=== PATIENT | female | born 1960 | race Caucasian/White ===

== ENCOUNTER 2019-06-08 10:35 | Outpatient (CLI) | payer BC, SELFPAY ==
--- NOTE | ~2019-06-08 | CT_ITS ---
EXAMINATION: CT abdomen pelvis wo con EXAM DATE: 06/08/2019 12:31 INDICATION: Renal stone. Pancreatitis. TECHNIQUE: Spiral CT of the abdomen and pelvis was performed without contrast. Axial, coronal and sag ittal images were reviewed. The dose-length product (DLP) for this examination was 223.25 mGy-cm. T he exposure was tailored according to patient size (auto mA exposure control), and iterative reconstr uction (ASIR) was used as additional dose reduction technique. Comparison is made to prior examinatio n from 05/17/2017. FINDINGS: There is no nephrolithiasis or hydronephrosis. The uterus is unremarkable. The bladder is collapsed at time of imaging limiting evaluation. The liver, spleen, adrenal glands and pancreas are unremarkable. Gallbladder is unremarkable. No biliary obstruction. There is no retroperitoneal or pelvic lymphadenopathy. The appendix is normal. The stomach and small bowel are unremarkable. There is mild sigmoid colonic diverticulosis. There is no adjacent inflammatory change to suggest diverticulitis. There is coloni c fluid, correlate for diarrhea. No free intraperitoneal gas. The heart is normal in size. There are no pericardial or pleural effusions. The lung bases are unremarkable. There is sclerotic right acetabular 1 cm focus likely bone island. IMPRESSION: 1. Colonic fluid, correlate for diarrhea. 2. Mild colonic diverticulosis. Reviewed, dictated and finalized at location B. STUD RIVETER
[2019-06-08 10:55] LABS: Add Urine Microscopic? YES; Appearance Urine Clear (Clear); Bilirubin Urine Negative (Negative); Blood Urine 2+ (Negative); Color Urine Yellow (Yellow); Glucose Urine UA Negative (Negative); Ketones Urine Negative (Negative); Leukocyte Esterase Ur 1+ LEU/UL (Negative); Nitrate Urine Negative (Negative); Protein Urine Negative (Negative); Specific Grav Ur >= 1.030 (1.010-1.020); Urobilinogen Urine 0.2 mg/dL (0.2-1.0); pH Urine 5.5 (5.0-8.0)
[2019-06-08 11:06] LABS: Bacteria Urine 1+ /hpf; Squamous Epithelial Cell Urine Few /hpf (Few)
[2019-06-08 11:08] LABS: Influenza Control Valid (Valid)
[2019-06-08 11:11] LABS: Alanine Aminotransferase 51 U/L (14-59); Albumin Level 4.2 g/dL (3.4-5.0); Alkaline Phosphatase 58 U/L (46-116); Amylase 166 U/L (25-115); Anion Gap 12.9 mmol/L (7-16); Aspartate Amino Transferase 32 U/L (15-37); Bilirubin,Total 0.5 mg/dL (0.00-1.00); Blood Urea Nitrogen 15 mg/dL (7-18); Calcium 8.6 mg/dL (8.5-10.1); Carbon Dioxide 28 mmol/L (21-32); Chloride 105 mmol/L (98-108); Estimated Glomerular Filt Rate > 60; Glucose 97 mg/dL (70-99); Lipase 153 U/L (73-393); Osmolality Calculated 294 mOsm/kg (285-295); Potassium 3.9 mmol/L (3.5-5.1); Sodium 142 mmol/L (136-145); Total Protein 9.4 g/dL (6.4-8.2)
[2019-06-08 11:33] LABS: Basophils Absolute Auto 0.01 K/mm3 (0.00-0.10); Basophils Percent Auto 0.1 % (0.0-1.0); Eosinophils Absolute Auto 0.06 K/mm3 (0.02-0.50); Eosinophils Percent Auto 0.7 % (1.0-6.0); Hematocrit 38.8 % (35.0-49.0); Hemoglobin 12.8 g/dL (12.0-15.0); Immature Granulocyte Absolute 0.03 K/mm3 (0.00-0.00); Immature Granulocyte Percent A 0.4 % (0.0-0.0); Lymphocytes Absolute Auto 1.29 K/mm3 (1.10-4.50); Lymphocytes Percent Auto 15.6 % (18.0-42.0); Mean Corpuscular Hemoglobin 28.4 pg (27.0-31.0); Mean Corpuscular Volume 86.2 fL (78.0-102.0); Mean Platelet Volume 9.7 fl (9.2-11.8); Monocytes Absolute Auto 0.39 K/mm3 (0.10-0.90); Monocytes Percent Auto 4.7 % (2.0-11.0); Neutrophils Absolute Auto 6.5 K/mm3 (1.7-7.2); Neutrophils Percent Auto 78.5 % (50.0-70.0); Platelet Count Result 219 K/mm3 (150-420); Red Cell Distribution Width 13.1 % (11.6-14.4); White Blood Count 8.3 K/mm3 (4.8-10.8)
== END 2019-06-08 10:36 | disposition home or self-care (01) ==
PROVIDERS: PCP Internal Medicine; Visit Provider Nurse Practitioner Family
DX: N20.0 Calculus of kidney (principal); K85.90 Acute pancreatitis without necrosis or infection, unspecified; R10.9 Unspecified abdominal pain; R68.83 Chills (without fever)
CPT/HCPCS: 74176; 80053; 81001; 82150; 83690; 85025; 87086; 87088; 87804

== ENCOUNTER 2019-06-10 03:15 | Emergency (ER) | payer BC, SELFPAY ==
--- NOTE | 2019-06-10 03:29 | ED.NAVMDI ---
HPI - Nausea/Vomiting/Diarrhea General Stated complaint: vomiting Time Seen by Provider: 06/10/19 03:20 Source: patient and family History of Present Illness HPI Narrative: This is a 59-year-old female that presents with nausea vomiting and diarrhea I had 3 episodes of vomiting with an episode of watery diarrhea am currently there is no abdominal pain no fever or chills no chest pain no shortness of breath no bloody diarrhea. The patient was seen in the ER on the 08 of June and diagnosed with a UTI and influenza, and was discharged on Cipro and Tamiflu. Patient also had blood work which was unremarkable on the 08 of June along with CT of the abdomen which showed no acute findings possible diverticulosis. MD elicited complaint: nausea, vomiting and diarrhea Description of vomiting: watery Description of diarrhea: watery Associated nausea: Yes Associated abdominal pain: No Location of pain: none Related Data Allergies Allergy/AdvReac Type Severity Reaction Status Date / Time No Known Allergies Allergy Verified 06/10/19 03:35 Review of Systems Review of Systems: All systems reviewed & are unremarkable except as noted in HPI and below PMFSH Past Medical History Medical History Diverticulosis Exam Const: General: cooperative, healthy appearing, comfortable, no acute distress, well developed, awake and Physically active Nutritional Appearance: average body habitus and well nourished Orientation/consciousness: oriented to person, oriented to place, oriented to time and patient oriented x3 Limitations: no limitations HENMT: Head: normal to inspection Face and sinus: normal facial exam and sinuses nontender Eyes: General: appearance normal, both eyes and all related structures Neck: Neck: normal visual inspection, full ROM, no lymphadenopathy and no meningeal signs Chest: Chest palpation & inspection: normal inspection of the chest Resp: Effort & Inspection: normal respiratory effort and able to speak in complete sentences Auscultation: clear to auscultation bilaterally Cardio: Jugular venous distension: no JVD Palpation: normal PMI Rate: regular rate Rhythm: regular rhythm Heart sounds: S1 normal heart sound present and S2 normal heart sound present GI: Inspection: normal to inspection Auscultation: normal bowel sounds Back/Spine/Pelvis: Back: no CVA tenderness Skin: General skin exam: normal color and no rashes or lesions noted Neuro: General: oriented to person and patient oriented x3 Critical Care Time Critical Care Time Critical Care Time: No Discharge Plan Discharge Clinical Impression: Influenza Nausea & vomiting Qualifiers: Vomiting type: unspecified Vomiting Intractability: non-intractable Qualified Code(s): R11.2 - Nausea with vomiting, unspecified Patient Disposition: Home, Self-Care Condition: Stable Instructions: Antibiotic Form Additional Instructions: drink plenty of fluids, take medicine as prescribed and follow-up with primary care physician if symptoms persist or worsen. Prescriptions: New ondansetron HCl [Zofran] 4 mg tablet 4 mg PO Q6H PRN (Reason: nausea and vomiting) Qty: 10 RF: 0 Follow-up/Referrals: Matty Yang MD [Primary Care Provider] - Stand Alone Forms: Work/School Release IP Time of Disposition: 03:35
[2019-06-10 03:41] VITALS: BP 134/77; PULSE 80; RESP 20; TEMP 36.6; O2SAT 98
[2019-06-10] MEDS: ONDANSETRON HCL ODT 4 MG TABLET PO ×2 (03:46→03:52)
[2019-06-10 03:50] VITALS: BP 130/78; PULSE 75; RESP 20; TEMP 36.6; O2SAT 100
== END 2019-06-10 03:53 | disposition home or self-care (01) ==
PROVIDERS: Emergency Provider Emergency Medicine; PCP Internal Medicine
DX: J11.1 Influenza due to unidentified influenza virus with other respiratory manifestations (principal); R11.2 Nausea with vomiting, unspecified
CPT/HCPCS: 99283; A9270

== ENCOUNTER 2021-06-15 08:08 | Outpatient (CLI) | payer BC, SELFPAY ==
--- NOTE | ~2021-06-15 | US_ITS ---
EXAMINATION: US retroperitoneal comp DATE: 06/15/2021 08:41 INDICATION: Right renal cyst TECHNIQUE: Multiple grayscale and color Doppler images of the kidneys were obtained. COMPARISON: CT dated 06/08/2019 FINDINGS: The right kidney measures 10.1 x 3.6 x 5.1 cm. The left kidney measures 10.3 x 4.7 x 4.5 cm. 11 mm hy perechoic nodule at the medial right kidney raising concern for neoplasm. The kidneys demonstrate oth erwise normal echogenicity. There is no hydronephrosis in either kidney. No stones identified. Diffu se hepatic steatosis. The bladder is normal. IMPRESSION: 1. Indeterminate 11 mm hyperechoic right renal nodule raising concern for neoplasm either benign or malignant. Recommend further evaluation with pre and postcontrast MRI or CT. 2. No hydronephrosis. 3. Diffuse hepatic steatosis. Reviewed, dictated and finalized at location A. HOUSE WORKER IMPRESSION: 1. Indeterminate 11 mm hyperechoic right renal nodule raising concern for neop lasm either benign or malignant. Recommend further evaluation with pre and post contrast MRI or CT. 2. No hydronephrosis. 3. Diffuse hepatic steatosis.
--- NOTE | ~2021-06-15 | MM_ITS ---
EXAMINATION: MM screening rashaad BI w juaquin HISTORY: Screening mammogram TECHNIQUE: Craniocaudal and mediolateral oblique 3-D tomosynthesis images were obtained and synthetic 2-D images were generated. CAD analysis was submitted and interpreted. COMPARISON: 03/02/2013, 03/03/2012 bilateral screening mammogram BREAST PARENCHYMAL COMPOSITION: There are scattered areas of fibroglandular density. FINDINGS: There is no evidence of suspicious mass, calcification, or architectural distortion to sugg est malignancy in either breast. There has been no suspicious interval change. IMPRESSION: 1. No mammographic evidence of malignancy. 2. Recommend routine screening mammography in one year. BI-RADS Category 1: Negative Reviewed, dictated and finalized at location A. RECOVERER
== END 2021-06-15 08:09 | disposition home or self-care (01) ==
LOC: CHSIMG 08:10
PROVIDERS: PCP Internal Medicine; Visit Provider Internal Medicine
DX: Z12.31 Encounter for screening mammogram for malignant neoplasm of breast (principal); N28.1 Cyst of kidney, acquired
CPT/HCPCS: 76770; 77063; 77067

== ENCOUNTER 2021-07-21 08:34 | Outpatient (CLI) | payer BC, SELFPAY ==
--- NOTE | ~2021-07-21 | MR_ITS ---
EXAMINATION: MR abdomen wo/w con DATE: 07/21/2021 11:32 INDICATION: Right kidney mass. Right-sided low back pain. TECHNIQUE: Magnetic resonance imaging (MRI) of the abdomen was performed without and with 10 mL Multi Jimi intravenous contrast. Sequences included coronal T2-weighted FS FSE, coronal and axial FIESTA F S, coronal LAVA-flex, axial LAVA, axial T2-weighted FSE, axial T1-weighted dual-echo FSPGR, axial STI R FSE, and axial DWI. Postcontrast sequences included coronal LAVA-flex and a time course of axial LA VA. COMPARISON: Abdomen MRI 09/20/2017, CT abdomen and pelvis 06/08/2019 FINDINGS: There is diffuse hepatic steatosis. There is a 13 mm cyst in the liver. The gallbladder, spleen, panc reas, adrenal glands, and left kidney are normal. There is a 9 mm mass containing fat in right kidney , consistent with an angiomyolipoma. There are no dilated loops of bowel. There are no pathologically enlarged lymph nodes. There is no free intraperitoneal fluid. IMPRESSION: 1. 9 mm mass containing fat in right kidney, consistent with an angiomyolipoma. 2. Diffuse hepatic steatosis. Reviewed, dictated and finalized at location A.
== END 2021-07-21 08:35 | disposition home or self-care (01) ==
LOC: CHSIMG 08:35
PROVIDERS: PCP Internal Medicine; Visit Provider Urology
DX: N28.89 Other specified disorders of kidney and ureter (principal)
CPT/HCPCS: 74183; A9577

== ENCOUNTER 2023-03-28 09:41 | Outpatient (CLI) | payer OTHER, SELFPAY ==
--- NOTE | ~2023-03-28 | XR_ITS ---
Left Shoulder Technique: AP and scapular Y views were obtained. Clinical History: Pain Findings: No fracture or dislocation is seen. Osseous alignment is anatomic. The glenohumeral and acr omioclavicular joint spaces are preserved. Soft tissues are unremarkable. Impression: Unremarkable left shoulder radiographs. Reviewed, dictated and finalized at [facility]. Y RUNNER Impression: Unremarkable left shoulder radiographs.
--- NOTE | ~2023-03-28 | XR_ITS ---
EXAMINATION: XR ribs LT 2V DATE: 03/28/2023 10:35 INDICATION: Left shoulder and chest wall pain. TECHNIQUE: 2 views of the left ribs on 3 radiographs were obtained. COMPARISON: Chest 2 views 05/05/2017 FINDINGS: There is no left-sided pneumonia, pleural effusion, or pneumothorax. The heart size is norm al. IMPRESSION: 1. No rib fracture. Reviewed, dictated and finalized at location E. CE SUPPORT CLERK IMPRESSION: 1. No rib fracture.
== END 2023-03-28 09:42 | disposition home or self-care (01) ==
LOC: CHSIMG 09:47
PROVIDERS: PCP Internal Medicine; Visit Provider Internal Medicine
DX: M25.512 Pain in left shoulder (principal); R07.89 Other chest pain
CPT/HCPCS: 71100; 73030

== ENCOUNTER 2023-04-14 08:00 | Outpatient (RCR) | payer OTHER, SELFPAY ==
[2023-04-14 07:50] VITALS: BP_SYST 100
--- NOTE | 2023-04-14 08:46 | OPREHPOC ---
Outpatient Therapy Plan of Care This is a Multidisciplinary Plan of Care that may contain components documented by all disciplines (PT, OT, and ST.) PT Problem 1 PT Problem #1 Knowledge Deficit PT Goal 1 Goal 1. independent and compliant with HEP Target Visit 6 PT Problem 2 PT Problem #2 Pain PT Goal 1 Goal 1. patient to return to pain free movement and use of the L UE. Target Visit 12 PT Problem 3 PT Problem #3 Impaired Range of Motion PT Goal 1 Goal 1. L shoulder passive flexion to 160 degrees 2. L shoulder passive ER to 80 degrees 3. L shoulder passive abduction to 145 degrees or better Target Visit 6 PT Goal 2 Goal 1. L shoulder active flexion to 160 degrees 2. L shoulder active abduction to 160 degrees 3. L shoulder active ER to 80 degrees Target Visit 12 PT Problem 4 PT Problem #4 Impaired Strength PT Goal 1 Goal 1. 5/5 L shoulder strength 2. 5/5 L elbow strength Target Visit 12 PT Problem 5 PT Problem #5 Impaired Functional Mobil PT Goal 1 Goal 1. QD to display less than 5% functional deficits 2. patient to lift 40lbs from floor to waist with no pain 3. patient to lifts 20lbs overhead with no pain Target Visit 12
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
[2023-05-30 15:47] VITALS: BP_SYST 165
--- NOTE | 2023-05-30 16:37 | OPREHPOC ---
Outpatient Therapy Plan of Care This is a Multidisciplinary Plan of Care that may contain components documented by all disciplines (PT, OT, and ST.) PT Problem 1 PT Problem #1 Knowledge Deficit PT Goal 1 Goal 1. independent and compliant with HEP Target Visit 6 Progress Met PT Problem 2 PT Problem #2 Pain PT Goal 1 Goal 1. patient to return to pain free movement and use of the L UE. Target Visit 12 Comment progressing PT Problem 3 PT Problem #3 Impaired Range of Motion PT Goal 1 Goal 1. L shoulder passive flexion to 160 degrees 2. L shoulder passive ER to 80 degrees 3. L shoulder passive abduction to 145 degrees or better Target Visit 6 Progress Met PT Goal 2 Goal 1. L shoulder active flexion to 160 degrees 2. L shoulder active abduction to 160 degrees 3. L shoulder active ER to 80 degrees Target Visit 12 Comment progressing PT Problem 4 PT Problem #4 Impaired Strength PT Goal 1 Goal 1. 5/5 L shoulder strength 2. 5/5 L elbow strength Target Visit 12 Comment progressing PT Problem 5 PT Problem #5 Impaired Functional Mobil PT Goal 1 Goal 1. QD to display less than 5% functional deficits 2. patient to lift 40lbs from floor to waist with no pain 3. patient to lifts 20lbs overhead with no pain Target Visit 12 Comment progressing
--- NOTE | 2023-05-30 16:37 | PTOPREEVAL ---
Assessment and note entered by Monica Solorzano DPT Evaluation Information Assessment Status Re-evaluation Diagnosis L shoulder pain Subjective Information patient reports since starting PT her pain has decreased. She reports she has been released for full duty at work but MD would like her to continue with PT for remaining sessions. She reports she has been able to sleep on the left side and lift her arm away from her body. She reports she needs to be able to push/pull/lift for work. Reported Pain Level Pain Score 1: Self Report Assessment PT Clinical Summary Mrs. Burnett has attended 8 visits of skilled PT. She returns today after being out of the country [place] 3 weeks. Patient has been released for full duty at work starting tomorrow. She demonstrates great improvement towards goals at this time with improved strength and ROM of the L shoulder. She continues to lack full L shoulder strength to return to lifting activities. She would benefit from continued skilled PT to address remaining impairments and return to PLOF. Plan of Care Interventions Electrical Stimulation,Hot Pack/Cold Pack,Manual Therapy,Neuro Re-education,Patient/Caregiver Educati,Therapeutic Activities,Therapeutic Exercise PT Services Indicated Yes Treatment Frequency and continue with remaining POC Duration These treatments will address the objective and functional deficits as defined above. The patient will be advanced safely and appropriately in order for the patient to progress towards his/her prior level of function. Additional exercises will be introduced and as well as a comprehensive home exercise program upon discharge, if needed, ?to ensure carryover of functional gains achieved in the clinic. This treatment plan has been reviewed and agreement upon by the patient.
[2023-06-08 15:01] VITALS: BP_SYST 165
--- NOTE | 2023-06-08 15:44 | OPREHPOC ---
Outpatient Therapy Plan of Care This is a Multidisciplinary Plan of Care that may contain components documented by all disciplines (PT, OT, and ST.) PT Problem 1 PT Problem #1 Knowledge Deficit PT Goal 1 Goal 1. independent and compliant with HEP Target Visit 6 Progress Met PT Problem 2 PT Problem #2 Pain PT Goal 1 Goal 1. patient to return to pain free movement and use of the L UE. Target Visit 12 Progress Met Comment progressing PT Problem 3 PT Problem #3 Impaired Range of Motion PT Goal 1 Goal 1. L shoulder passive flexion to 160 degrees 2. L shoulder passive ER to 80 degrees 3. L shoulder passive abduction to 145 degrees or better Target Visit 6 Progress Met PT Goal 2 Goal 1. L shoulder active flexion to 160 degrees 2. L shoulder active abduction to 160 degrees 3. L shoulder active ER to 80 degrees Target Visit 12 Progress Met Comment progressing PT Problem 4 PT Problem #4 Impaired Strength PT Goal 1 Goal 1. 5/5 L shoulder strength 2. 5/5 L elbow strength Target Visit 12 Progress Met Comment progressing PT Problem 5 PT Problem #5 Impaired Functional Mobil PT Goal 1 Goal 1. QD to display less than 5% functional deficits 2. patient to lift 40lbs from floor to waist with no pain 3. patient to lifts 20lbs overhead with no pain Target Visit 12 Progress Partially Met Comment QuickDash 6.8%
--- NOTE | 2023-06-08 15:44 | PTOPDC ---
Assessment and note entered by Monica Solorzano DPT Evaluation Information Assessment Status Re-evaluation Diagnosis L shoulder pain Subjective Information patient reports since starting PT her pain has decreased. She reports she has been released for full duty at work but MD would like her to continue with PT for remaining sessions. She reports she has been able to sleep on the left side and lift her arm away from her body. She reports she needs to be able to push/pull/lift for work. Reported Pain Level Pain Score 0: Self Report Assessment PT Clinical Summary Mrs. Burnett has attended 8 visits of skilled PT. She returns today after being out of the country [place] 3 weeks. Patient has been released for full duty at work starting tomorrow. She demonstrates great improvement towards goals at this time with improved strength and ROM of the L shoulder. She continues to lack full L shoulder strength to return to lifting activities. She would benefit from continued skilled PT to address remaining impairments and return to PLOF. Plan of Care PT Services Indicated Yes
--- NOTE | 2023-06-08 15:46 | PTOPDC ---
Assessment and note entered by Monica Solorzano DPT Evaluation Information Assessment Status Re-evaluation Diagnosis L shoulder pain Subjective Information patient reports since starting PT her pain has decreased. She reports she has been released for full duty at work but MD would like her to continue with PT for remaining sessions. She reports she has been able to sleep on the left side and lift her arm away from her body. She reports she needs to be able to push/pull/lift for work. Reported Pain Level Pain Score 0: Self Report Assessment PT Clinical Summary Ms. Burnett was seen for 12 visits of skilled PT and met all goals besides goal for QuickDash score that did improve greatly. She reports she has been able to return to all work and home duties without limitation due to the L shoulder. She is independent with HEP and is appropriate for DC at this time. Plan of Care PT Services Indicated No
== END 2023-06-08 16:29 | disposition home or self-care (01) ==
LOC: CHSPT 08:00
PROVIDERS: PCP Internal Medicine; Visit Provider Internal Medicine
DX: M25.512 Pain in left shoulder (principal)
CPT/HCPCS: 97014; 97110; 97140; 97161; 97530; G0283

== ENCOUNTER 2023-12-27 08:28 | Outpatient (CLI) | payer OTHER, SELFPAY ==
--- NOTE | ~2023-12-27 | XR_ITS ---
Left Knee Technique: AP, lateral, and sunrise views were obtained. Clinical History: Pain Findings: No fracture or dislocation is seen. Osseous alignment is anatomic. Minimal degenerative sona nges are present. Soft tissues are unremarkable. No joint effusion is seen. Impression: Minimal degenerative changes. Reviewed, dictated and finalized at [facility]. Impression: Minimal degenerative changes.
--- NOTE | ~2023-12-27 | XR_ITS ---
Lumbosacral Spine: AP and lateral views Clinical History: Pain Findings: The normal lordotic curve is maintained. No fracture seen. There is minimal grade 1 anterol isthesis of L4 over L5. There is moderate to advanced facet arthropathy from L4 through S1. The sacro iliac joints are normally outlined. Impression: Minimal grade 1 anterolisthesis of L4 over L5. Mild to moderate degenerative change of the lower lumbar spine, as above. Reviewed, dictated and finalized at location M. Impression: Minimal grade 1 anterolisthesis of L4 over L5. Mild to moderate degenerative change of the lower lumbar spine, as above.
== END 2023-12-27 08:29 | disposition home or self-care (01) ==
LOC: CHSIMG 08:34
PROVIDERS: PCP Internal Medicine; Visit Provider Internal Medicine
DX: M54.50 Low back pain, unspecified (principal); M25.562 Pain in left knee; M43.16 Spondylolisthesis, lumbar region
CPT/HCPCS: 72100; 73564

== ENCOUNTER 2024-03-26 14:17 | Outpatient (CLI) | payer SELFPAY ==
--- NOTE | ~2024-03-26 | XR_ITS ---
XR wrist RT min 3V Ordering provider: Nu Sunshine, LINOLEUM MECHANIC History: . 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 Comparison: None. FINDINGS: BONES: No acute fracture or dislocation. No definite scaphoid fracture. JOINT SPACES: Normal. SOFT TISSUES: Normal. IMPRESSION: No acute osseous abnormality right wrist. Reviewed, dictated and finalized at location A. ECTOR OF AQUARIUM SPECIMENS
== END 2024-03-26 14:18 | disposition home or self-care (01) ==
LOC: CHSIMG 14:18
PROVIDERS: PCP Internal Medicine; Visit Provider Nurse Practitioner Family
DX: M25.531 Pain in right wrist (principal)
CPT/HCPCS: 73110